=== PATIENT | male | born 1990 | race Caucasian/White ===

== ENCOUNTER 2017-09-13 10:50 | Observation (INO) ==
[2017-09-13] MEDS ORDERED: 0.9 % SODIUM CHLORIDE 1,000 ML IV ONE (11:11)
[2017-09-13] MEDS ORDERED: KETOROLAC 30 MG/ML VIAL IV ONE (11:13)
[2017-09-13] MEDS ORDERED: LEVOFLOXACIN 500 MG/100 ML BAG IV ONE (11:20)
--- NOTE | 2017-09-13 11:28 | Emergency Department Note ---
Male Urogenital HPI - General Chief complaint: Flank Pain Stated complaint: Flank pain, N/V Time Seen by Provider: 09/13/17 11:18 Source: patient Mode of arrival: ambulatory Limitations: no limitations - History of Present Illness HPI Narrative: Patient states he has had some dysuria and frequency over the last month intermittently. Last night at approximately 2:00 in the morning he was awake with severe pain he rates it as a 10/10 continues having severe pain in the left flank, rates it as a 7/10. Patient has no history of kidney stones. Patient is afebrile. There is no family history of kidney stones. Patient had an episode of nausea with vomiting during the night there is been no diarrhea no constipation problems no hematemesis no melena. His urine dip test does show large amount of WBCs large amount of RBCs - Related Data Home Medications Medication Instructions Recorded Confirmed No Known Home Meds [No Known Home 10/24/14 09/13/17 Meds] Allergies Allergy/AdvReac Type Severity Reaction Status Date / Time No Known Drug Allergies Allergy Unverified 10/24/14 19:57 Review of Systems All systems ED: reviewed and negative except as stated. Constitutional: Denies: fever, chills Genitourinary: Reports: as per HPI, dysuria, frequency, hematuria. Denies: urgency, incontinence, discharge Past Medical History - Past Medical History Medical history: Reports: atrial fibrillation (One episode 5 years ago. On no medications), seizures (2 times in his life is on no medications) Surgical history ED: Reports: no surgical history Family history: Reports: other (Brother with epilepsy) - Social History smoking status: Never smoker Alcohol use: Reports: Rarely Drug use: Reports: none Physical Exam Limitations: no limitations General appearance: alert Head: atraumatic Eye: Present: normal appearance, PERRL ENT: normal exam, normal oropharynx, mucous membranes moist Neck: Present: normal inspection, full ROM. Absent: trachea midline Chest: Present: normal inspection, symmetric chest wall rise. Absent: tenderness Respiratory: Present: normal lung sounds bilaterally. Absent: respiratory distress, wheezes Cardiovascular: Present: regular rate, normal rhythm. Absent: bradycardia, tachycardia Abdominal: Present: soft, normal bowel sounds. Absent: distention, tenderness, guarding, rebound, rigidity Extremities: Present: normal inspection Back: Present: normal inspection, full ROM, CVA tenderness (L). Absent: muscle spasm, paraspinal tenderness Neurological: Present: alert, oriented X3, CN II-XII intact Psychiatric: Present: normal affect, normal mood Course Vital Signs Temperature 97.6 F 09/13/17 10:50 Pulse Rate 82 09/13/17 10:50 Respiratory Rate 16 09/13/17 10:50 Blood Pressure 137/91 09/13/17 10:50 Pulse Oximetry (%) 100 09/13/17 10:50 Temperature 97.6 F 09/13/17 10:50 Pulse Rate 87 09/13/17 12:37 Respiratory Rate 16 09/13/17 10:50 Blood Pressure 136/91 09/13/17 12:31 Pulse Oximetry (%) 100 09/13/17 12:37 Urogenital-Male - MDM Narrative Medical decision making narrative: ua dip show lg wbc and rbc. CT REVEALS 10 MM STONE LEFT UVJ. LEVAQUIN STARTED.. dR Garrison CONTACTED, WILL BE HERE - Lab Data Result diagrams: 09/13/17 11:16 09/13/17 11:16 Lab Results 09/13/17 09/13/17 09/13/17 Range/Units 11:16 11:16 11:16 WBC 9.7 (4.5-11.0) K/mcL RBC 5.51 (4.50-5.90) M/mcL Hgb 15.7 (13.5-16.5) g/dL Hct 45.9 (41.0-55.0) % MCV 83.3 (80.0-100.0) fL MCH 28.5 (26.0-34.0) pg MCHC 34.2 (31.0-36.0) g/dL RDW 13.0 (11.5-14.5) % Plt Count 156 (140-440) K/mcL MPV 9.6 (7.4-10.4) fL Gran % 70.8 (38.0-78.0) % Lymph % (Auto) 18.5 (15.5-49.0) % [place] % (Auto) 9.1 (1.0-12.0) % Eos % (Auto) 1.2 (0.0-7.0) % Baso % (Auto) 0.4 (0.0-2.0) % Gran # 6.9 (1.8-8.0) K/mcL Lymph # (Auto) 1.8 (1.5-4.8) K/mcL [place] # (Auto) 0.9 (0.1-0.9) K/mcL Eos # (Auto) 0.1 (0.0-0.7) K/mcL Baso # (Auto) 0 (0.0-0.3) K/mcL Sodium 141 (133-145) mmol/L Potassium 3.8 (3.3-5.1) mmol/L Chloride 102 (96-108) mmol/L Carbon Dioxide 27 (22-30) mmol/L Anion Gap 12.0 (8-16) BUN 17 (6-20) mg/dl Creatinine 1.4 H (0.7-1.2) mg/dl GFR Calculation 70 Glucose 119 H (70-105) mg/dL Calcium 8.9 (8.6-10.4) mg/dl Total Bilirubin 1.1 H (0.0-1.0) mg/dL AST 16 (0-37) U/l ALT 16 (0-40) U/l Alkaline Phosphatase 48 (39-117) U/L Total Protein 7.2 (5.9-8.4) gm/dL Albumin 4.7 (3.2-5.2) gm/dL Globulin 2.5 (2.2-3.7) gm/dL Albumin/Globulin Ratio 1.9 (1.0-2.3) Urine Color Yellow Urine Appearance Clear Urine pH 5.0 (5.0-9.0) Ur Specific [place] 1.023 (1.000-1.035) Urine Protein 30 A (NEG) mg/dL Urine Glucose (UA) Negative (NEG) mg/dL Urine Ketones Neg (NEG) mg/dL Urine Occult Blood 0.2 A (<0.03) mg/dL Urine Nitrate Neg (NEG) Urine Bilirubin Neg (NEG) mg/dL Urine Urobilinogen Neg (NEG) mg/dL Ur Leukocyte Esterase 75 A (NEG) /uL Urine RBC 140 H (0-1) /hpf Urine WBC 31 H (0-4) /hpf Ur Squamous Epith Cells 0 (0-4) /hpf Urine Bacteria 0 (0) /hpf Urine Mucus Few (0) /hpf Ur Culture Indicated? Yes 09/13/17 Range/Units 11:16 WBC (4.5-11.0) K/mcL RBC (4.50-5.90) M/mcL Hgb (13.5-16.5) g/dL Hct (41.0-55.0) % MCV (80.0-100.0) fL MCH (26.0-34.0) pg MCHC (31.0-36.0) g/dL RDW (11.5-14.5) % Plt Count (140-440) K/mcL MPV (7.4-10.4) fL Gran % (38.0-78.0) % Lymph % (Auto) (15.5-49.0) % [place] % (Auto) (1.0-12.0) % Eos % (Auto) (0.0-7.0) % Baso % (Auto) (0.0-2.0) % Gran # (1.8-8.0) K/mcL Lymph # (Auto) (1.5-4.8) K/mcL [place] # (Auto) (0.1-0.9) K/mcL Eos # (Auto) (0.0-0.7) K/mcL Baso # (Auto) (0.0-0.3) K/mcL Sodium (133-145) mmol/L Potassium (3.3-5.1) mmol/L Chloride (96-108) mmol/L Carbon Dioxide (22-30) mmol/L Anion Gap (8-16) BUN (6-20) mg/dl Creatinine (0.7-1.2) mg/dl GFR Calculation Glucose (70-105) mg/dL Calcium (8.6-10.4) mg/dl Total Bilirubin (0.0-1.0) mg/dL AST (0-37) U/l ALT (0-40) U/l Alkaline Phosphatase (39-117) U/L Total Protein (5.9-8.4) gm/dL Albumin (3.2-5.2) gm/dL Globulin (2.2-3.7) gm/dL Albumin/Globulin Ratio (1.0-2.3) Urine Color TNP Urine Appearance TNP Urine pH TNP (5.0-9.0) Ur Specific [place] TNP (1.000-1.035) Urine Protein TNP (NEG) mg/dL Urine Glucose (UA) TNP (NEG) mg/dL Urine Ketones TNP (NEG) mg/dL Urine Occult Blood TNP (<0.03) mg/dL Urine Nitrate TNP (NEG) Urine Bilirubin TNP (NEG) mg/dL Urine Urobilinogen TNP (NEG) mg/dL Ur Leukocyte Esterase TNP (NEG) /uL Urine RBC (0-1) /hpf Urine WBC (0-4) /hpf Ur Squamous Epith Cells (0-4) /hpf Urine Bacteria (0) /hpf Urine Mucus (0) /hpf Ur Culture Indicated? TNP Disposition Pt seen by ASSISTANT DEAN OF STUDENTS/PA only: No Clinical Impression: Urolithiasis Qualifiers: Urinary calculus location: ureter Qualified Code(s): N20.1 - Calculus of ureter Disposition: Xfer As Inpt ([facility]) Condition: Fair Referrals: No,PCP [Primary Care Provider] - Time of Disposition: 13:13
[2017-09-13 11:38] LABS: Basophils # (Auto) 0 K/mcL (0.0-0.3); Basophils % (Auto) 0.4 % (0.0-2.0); Eosinophils # (Auto) 0.1 K/mcL (0.0-0.7); Eosinophils % (Auto) 1.2 % (0.0-7.0); Granulocytes % (Auto) 70.8 % (38.0-78.0); Lymphocytes # (Auto) 1.8 K/mcL (1.5-4.8); Lymphocytes % (Auto) 18.5 % (15.5-49.0); Mean Cell Volume 83.3 fL (80.0-100.0); Mean Corpuscular HGB Conc 34.2 g/dL (31.0-36.0); Mean Corpuscular Hemoglobin 28.5 pg (26.0-34.0); Monocytes # (Auto) 0.9 K/mcL (0.1-0.9); Monocytes % (Auto) 9.1 % (1.0-12.0); Platelet Count 156 K/mcL (140-440); RBC 5.51 M/mcL (4.50-5.90)
[2017-09-13 11:42] LABS: Appearance,Urine CLEAR; Bacteria,Urine 0 /hpf (0); Bilirubin,Urine NEG (NEG); Color,Urine YELLOW; Glucose,Urine (UA) NEGATIVE (NEG); Leukocyte Esterase,Urine 75 /uL (NEG); Mucus,Urine FEW /hpf (0); Protein,Urine 30 mg/dL (NEG); Specific Gravity,Urine 1.023 (1.000-1.035); Urine Blood 0.2 mg/dL (<0.03); Urine RBC 140 /hpf (0-1); Urine Squamous Epithelial Cell 0 /hpf (0-4); Urine WBC 31 /hpf (0-4); Urobilinogen,Urine NEG (NEG)
[2017-09-13 11:56] LABS: ALT/SGPT 16 U/l (0-40); Albumin 4.7 gm/dL (3.2-5.2); Albumin/Globulin Ratio 1.9 (1.0-2.3); Alkaline Phosphatase 48 U/L (39-117); Blood Urea Nitrogen 17 mg/dl (6-20)
--- NOTE | 2017-09-13 12:45 | Cat Scan Report ---
CLINICAL INFORMATION: Left flank pain COMPARISON: None. TECHNIQUE: 0.625 mm helical slices were obtained from the mid heart through the subtrochanteric regions. Following reconstruction, 2.5 mm sagittal, coronal and axial reformatted images were processed and reviewed at bone and soft tissue windows.The exam was performed using radiation dose optimization techniques including, but not limited to, automated exposure control, adjustment of the mA and/or kV according to patient size and use of iterative reconstruction technique. FINDINGS: There is a 10 mm stone in the distal left ureter, near the UVJ, which results in severe left hydroureter/hydronephrosis. Both kidneys, right upper collecting system, right ureter and urinary bladder are otherwise normal. Lung bases show no abnormality - no effusion. Visualized heart is normal. Images through the abdomen show the noncontrasted gallbladder and bile ducts, liver, both adrenal glands, spleen, pancreas and aorta to be normal. There is no free air, free fluid or adenopathy. Stomach small and large bowel are normal. Bone windows show severe degenerative change in the right hip with marked flattening of the femoral head and neck. This may be congenital. IMPRESSION: 1. 10 mm stone in the distal left ureter, near the UVJ, resulting in severe left hydroureter/hydronephrosis. This is unlikely to pass spontaneously 2. 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 Femoral head is markedly flattened severe degeneration noted. Interpreted and Authenticated by: Kunal Sapp 09/13/17
[2017-09-13] MEDS ORDERED: FAMOTIDINE/PF 20 MG/2 ML VIAL IV ONE (15:30)
[2017-09-13] MEDS ORDERED: DEXAMETHASONE 10 MG/ML VIAL IV ONE (15:30)
[2017-09-13] MEDS ORDERED: PROPOFOL 200 MG/20 ML VIAL IV ONE (15:30)
[2017-09-13] MEDS ORDERED: MIDAZOLAM 5 MG/5 ML VIAL IV ONE (15:30)
[2017-09-13] MEDS ORDERED: VERAPAMIL 2.5 MG/ML VIAL IV ONE (15:30)
[2017-09-13] MEDS ORDERED: SUCCINYLCHOLINE 20 MG/ML ML IV ONE (15:30)
[2017-09-13] MEDS ORDERED: fentaNYL 250 MCG/5 ML VIAL IV ONE (15:30)
[2017-09-13] MEDS ORDERED: LIDOCAINE HCL/PF 100 MG/5 ML SYRINGE IV ONE (15:30)
[2017-09-13] MEDS ORDERED: IOPAMIDOL 50 ML BOTTLE IJ ONE (16:15)
[2017-09-13] MEDS ORDERED: OPIUM/BELLADONNA ALKALOIDS 60 MG SUPP.RECT PR PRN ×2 (16:33→17:32)
[2017-09-13] MEDS ORDERED: HYDROcodone/APAP 10/325MG TABLET PO PRN (16:33)
[2017-09-13] MEDS ORDERED: ONDANSETRON 4 MG/2 ML VIAL IV PRN ×2 (16:33→17:32)
--- NOTE | 2017-09-13 16:36 | Brief Operative Note ---
Date of procedure: 09/13/17 Pre-op diagnosis: left ureteral stone Post-op diagnosis: same Procedure: bladder biopsy, stent Grafts/Implants: Yes (ureteral stent) Anesthesia: GETA, GLMA Findings: see note Complications: none Surgeon: Timothy Monet Specimens Removed/Pathology: other (bladder biopsy) Condition: other Disposition: PACU
--- NOTE | 2017-09-13 16:38 | Discharge Plan ---
Discharge Plan - Patient/Caregiver Discharge Instructions Activity: increase activity as tolerated Diet: Regular Diet Additional Instructions: go to e.d. - Follow up Plan Follow up with: No,PCP [Primary Care Provider] - Disposition: Still a Patient Prognosis: Good Rehab Potential: Good Overall status at discharge: patient is not back to baseline
[2017-09-13] MEDS ORDERED: ACETAMINOPHEN 325 MG TABLET PO PRN ×2 (17:13→17:32)
[2017-09-13] MEDS ORDERED: NALOXONE HCL 0.4 MG/ML VIAL IV PRN ×2 (17:13→17:32)
--- NOTE | 2017-09-13 17:44 | Internal Med History&Physical ---
Medical - H&P: HPI Patient information: Note initiated : 09/13/17 at 5:42 pm Service Date, if different from initiated Date: [] Patient: William Fontana 26 y/o M admitted on 09/13/17 for Flank pain, N/ V. Chief Complaint: [] History of present illness: Mr. Fontana is a 26 year old Male with h/o afib paroxysmal afib (seziure induced triggued afib? ), h/o seizure disorder presents to the ER today with dysuria and abdominal pain, noted to have ureteral stone on the left side with severe hydronephrosis. The patient was seen by urology and taken to OR for stone extraction/ during the procedure, the patient went in afib with rvr, the patient had elevated HR even prior to the procedure and was in afib, however at the time of induction the patient gil in rvr, needing 3 doses of verapramil, I believe 10mg x 3 The patient hR improved AT stent was placed and patient was asked to be admitted for monitoring overnight The patient otherwise has no acute complaints or concerns, does admit to intermittent dizziness, but no palpitations, no chest pain, shortness of breath , prior to the procedure or in recent times He does have h/o afib, has been cardioverted in 2012, as per Dr lópez, he was supposed to be on low caffene, he was on metoprolol and pradaxa at one time but these were stopped. He had a normal echo in 2014 In the Er his labs were unremarkable wbc normal at 9.7, hb 15.7, plat 1536 Na 141 , K 3.8, creat 1.4, glucose 119 Tbil 1.1 lac 0.9' EKG atrial fibrillation, no olf ekg to compare All systems: reviewed and no additional remarkable complaints except as stated ( as per HPI rest neg) Medical - H&P: PMH Medical history: seizure disorder, not on meds h/o paroxmal afib congenital hip dysplasia Surgical history: h/o appendetomy Family history: reviewed and not pertinent Social history: high caffene intake, 3 shots of duch bros coffee, in AM and moutain dew during day time. denies smoking, redbull use denies regular etoh use, but does binge when drinks 6-7 drinks at one time. denies recreational drug use. Medical - H&P: Meds Home Medications Medication Instructions Recorded Confirmed Type No Known Home Meds [No Known Home 10/24/14 09/13/17 History Meds] Allergies Allergy/AdvReac Type Severity Reaction Status Date / Time No Known Drug Allergies Allergy Unverified 10/24/14 19:57 Medical - H&P: Exam - Constitutional Vitals: Temp Pulse Resp BP Pulse Ox 97.6 F 88 16 130/72 100 09/13/17 17:12 09/13/17 17:12 09/13/17 17:12 09/13/17 17:12 09/13/17 17:12 Exam: GENERAL: The patient is a well-developed, well-nourished in no apparent distress. Is alert and oriented x3. VITAL SIGNS: Reviewed and as noted elsewhere. HEENT: Head is normocephalic and atraumatic. Extraocular muscles are intact. Pupils are equal, round, and reactive to light. Nares appeared normal. Mouth appears any without lesions. Mucous membranes are moist. NECK: Normal to inspection, Supple, No lymphadenopathy or thyromegaly. LUNGS: Air entry equal on both sides, no wheezing, crackles or rhonchi noted. No accessory muscles of respiration HEART: Regular rate and rhythm normal, S1 and S2 heard, no Gallop, S3 or Rub Noted, No Gross murmur heard. ABDOMEN: Soft, nontender, and nondistended. Positive bowel sounds. No hepatosplenomegaly was noted. EXTREMITIES: No cyanosis, clubbing, rash, lesions or edema. NEUROLOGIC: Cranial nerves II through XII are grossly intact. Motor and Sensory System Grossly Intact PSYCHIATRIC: Normal affect, Normal Mood. Appropriate Behavior. SKIN: No ulceration or wounds noted, No jaundice, No rash noted. Medical - H&P: Reslt - Labs CBC & Chem 7: 09/13/17 11:16 09/13/17 11:16 Labs: Short CBC 09/13/17 Range/Units 11:16 WBC 9.7 (4.5-11.0) K/mcL Hgb 15.7 (13.5-16.5) g/dL Hct 45.9 (41.0-55.0) % Plt Count 156 (140-440) K/mcL BMP 09/13/17 11:16 Sodium 141 Potassium 3.8 Chloride 102 Carbon Dioxide 27 BUN 17 Creatinine 1.4 H Glucose 119 H Calcium 8.9 Liver Function 09/13/17 Range/Units 11:16 Total Bilirubin 1.1 H (0.0-1.0) mg/dL AST 16 (0-37) U/l ALT 16 (0-40) U/l Alkaline Phosphatase 48 (39-117) U/L Albumin 4.7 (3.2-5.2) gm/dL Urine 09/13/17 09/13/17 Range/Units 11:16 11:16 Urine Color Yellow TNP Urine Appearance Clear TNP Urine pH 5.0 TNP (5.0-9.0) Ur Specific [place] 1.023 TNP (1.000-1.035) Urine Protein 30 A TNP (NEG) mg/dL Urine Glucose (UA) Negative TNP (NEG) mg/dL Medical - H&P: A/P - Narrative A/P Narrative: A/P Afib with rvr: likely triggered due to combination of pain, likely some dehydration due to poor intake, high caffene use. GIven neg echo in 2012, and no obvious concern by his steel pourer. I feel this can be managed just with IV fluids and starting him back on metoprolol. will start with 25mg bid, and monitor He needs to cut bck on his c affene intake, metoprolol can be discontinued in the future by his pcp, he he remains compliant with caffene intake and we can monitor his rhythym as outpatient off the drug. check utox check mg level k is 3.8 monitor on tele overnight. Renal stone/ s/p stent palcement. UA suggestive of UTI, on ciprofloxacin elevated creat at 1.4, young muscular individual not sure about hs baseline. but his hydronephrolsis may have contributed to elevation of same. now that stent has been placed I expect this to improve. dvt hep sq Diet regula full code.
[2017-09-13 19:01] LABS: Amphetamine Screen,Urine NONE DETECTED (NONDETECTED); Benzodiazepines Screen,Urine NONE DETECTED (NONDETECTED); Cocaine Screen,Urine NONE DETECTED (NONDETECTED); Opiate Screen,Urine SUSPECT POSITIVE (NONDETECTED); Oxycodone, Urine Screen NONE DETECTED (NONDETECTED)
[2017-09-13] MEDS: HYDROcodone/APAP 10/325MG TABLET PO PRN (19:06)
[2017-09-13] MEDS: METOPROLOL TARTRATE 25 MG TABLET PO SCH ×2 (19:07→20:04)
[2017-09-13] MEDS: LACTATED RINGERS 1,000 ML IV SCH ×2 (19:07→21:46)
--- NOTE | 2017-09-13 20:50 | History and Physical Report ---
DATE OF ADMISSION: 09/13/2017 DATE: 09/13/2017. HISTORY OF PRESENT ILLNESS: Mr. Fontana is a 26-year-old gentleman who this morning had sudden onset of severe left flank pain. Nausea and vomiting. He has never seen any blood in his urine. He states for the last year or so he has been having pain intermittently on the left and never saw any but he denies any fevers or chills. There is no history of stones. Because of the nausea and vomiting, severe pain, came to the emergency room. A CT scan was obtained which showed a 1 cm stone in the left UVJ, which was causing high grade obstruction. I have been asked to evaluate him. PAST MEDICAL HISTORY: Significant for seizures, atrial fibrillation which he was cardioverted from. Has not seen cardiology in a while. CURRENT MEDICATIONS: None. ALLERGIES: NONE. SOCIAL HISTORY: Does not smoke, occasionally drinks. . FAMILY HISTORY: Noncontributory. REVIEW OF SYSTEMS: Cardiac: Denies any chest pain, no shortness of breath. Respiratory: No wheezing, coughing, or asthma. Psychological: Alert, no bipolar disease, no anxiety. Pulmonary: No breathing problems. The rest of a 14-point review of systems is negative. PHYSICAL EXAMINATION: GENERAL: This is a very pleasant gentleman in slight distress. VITAL SIGNS: As listed per nurse's notes. HEENT: Atraumatic, normocephalic. Extraocular movements are intact. Pupils equal, reactive to light and accommodation. No thyromegaly is noted. NECK: Supple. Trachea is in the midline. No oral mucosal lesions. LUNGS: Clear to auscultation. HEART: Regular rate and rhythm. ABDOMEN: Soft, nontender, positive left CVA tenderness which extends down to the groin. GENITOURINARY: Testicles are normal down in their normal position. Scrotum without hydrocele or varicocele. Epididymides are without cysts. Penis is circumcised without plaques. Meatus at the end of his penis. EXTREMITIES: Without clubbing, cyanosis or edema. NEUROLOGIC: Cranial nerves II-XII intact. IMPRESSION: The patient with a large stone in the distal left ureter. I have talked to him about the options including open ureterolithotomy, extracorporal lithotripsy or ureteroscopy with stone removal. He opts for the latter. I did talk to him about possible complications including bleeding, infection, pain, need for a stent and he understands. Surgery will be scheduled this afternoon. A full PARQ discussion was held and he desires surgery. KENNA:carlyle Job ID: [id number] Doc ID: [id number] Timothy Monet MD
[2017-09-13] MEDS ORDERED: HEPARIN 5,000 UNIT/ML VIAL SQ SCH (21:00)
[2017-09-13] MEDS: HEPARIN 5,000 UNIT/ML VIAL SQ SCH (21:03)
[2017-09-13] MEDS: CIPROFLOXACIN 500 MG TABLET PO SCH (21:03)
[2017-09-13] MEDS: 0.9 % SODIUM CHLORIDE 10 ML SYRINGE IV SCH (21:05)
[2017-09-13] MEDS ORDERED: 0.9 % SODIUM CHLORIDE 10 ML SYRINGE IV SCH ×3 (22:00)
[2017-09-13] MEDS: METOPROLOL TARTRATE 5 MG/5 ML VIAL IV SCH (22:05)
[2017-09-14] MEDS: HYDROcodone/APAP 10/325MG TABLET PO PRN ×2 (00:04→03:35)
[2017-09-14] MEDS: LACTATED RINGERS 1,000 ML IV SCH (00:07)
[2017-09-14 05:05] LABS: Mean Cell Volume 85.7 fL (80.0-100.0); Mean Corpuscular Hemoglobin 28.3 pg (26.0-34.0); Platelet Count 146 K/mcL (140-440); RBC 5.13 M/mcL (4.50-5.90); Red Cell Distribution Width 13.8 % (11.5-14.5)
[2017-09-14] MEDS: 0.9 % SODIUM CHLORIDE 10 ML SYRINGE IV SCH (05:22)
[2017-09-14 05:31] LABS: ALT/SGPT 12 U/l (0-40); Albumin 3.7 gm/dL (3.2-5.2); Albumin/Globulin Ratio 1.5 (1.0-2.3); Alkaline Phosphatase 47 U/L (39-117); Bilirubin,Direct < 0.2 mg/dL (0.0-0.3); Blood Urea Nitrogen 16 mg/dl (6-20); Gamma Glutamyl Transpeptidase 14 U/L (8-61); Uric Acid 5.2 mg/dL (2.5-8.0)
[2017-09-14 05:34] LABS: Band Neutrophils % 7 % (0-10); Lymphocytes % 10 % (15-49); Monocytes % (Manual) 3 % (1-12); Platelet Estimate NORMAL (NORMAL); RBC Morphology NORMAL (NORMAL); Segmented Neutrophils % 80 % (38-78)
--- NOTE | 2017-09-14 05:59 | XRay Report ---
CLINICAL INFORMATION: 10 mm stone in the distal left ureter resulting in severe left hydroureter/hydronephrosis. COMPARISON: None. FINDINGS: Multiple digital images from the OR were any: A catheter was placed in the the left upper collecting system demonstrating severe left hydronephrosis/hydroureter due to a 10 mm obstructing stone near the UVJ. Two images show the stone still intact in the region of the distal left ureter IMPRESSION: 10 mm stone in the distal left ureter resulting in severe left hydroureter/hydronephrosis. No post stone removal images were submitted. Interpreted and Authenticated by: Kunal Sapp 09/14/17
[2017-09-14] MEDS: METOPROLOL TARTRATE 25 MG TABLET PO SCH (08:38)
[2017-09-14 09:00] LABS: Hemoglobin A1C 5.3 % HGB (4.0-6.0)
--- NOTE | 2017-09-14 09:47 | Discharge Summary ---
Medical - DS: Prov Patient information: Note initiated : 09/14/17 at 9:45 am Service Date, if different from initiated Date: [] Patient: William Fontana 26 y/o M admitted on 09/13/17 for Flank pain, N/ V. Chief Complaint: [] Date of admission: 09/13/17 17:00 Discharge date: 09/14/17 Primary care physician: PCP No Admitting clinician: Jacqui Freeman Consults: 09/13/17 13:06 Consult to Physician [CONS] Stat Comment: Consulting Provider: Timothy Monet Reason For Exam: Physician to Consult Discharging clinician: Jacqui Freeman Medical - DS: Meds - Discharge Medications Prescriptions: Metoprolol Tartrate [Lopressor] 25 mg PO BID #60 tablet Active and Home Medications: Home Medications No Known Home Meds [No Known Home Meds] 10/24/14 [History Confirmed 09/13/17 Last Taken Unknown] Medical - DS: Hosp Hospital course: Mr. Fontana is a 26 year old Male with h/o afib paroxysmal afib (seziure induced triggued afib? ), h/o seizure disorder presents to the ER with dysuria and abdominal pain, noted to have ureteral stone on the left side with severe hydronephrosis. The patient was seen by urology and taken to OR for stone extraction/ during the procedure, the patient went in afib with rvr, the patient had elevated HR even prior to the procedure and was in afib, however at the time of induction the patient gil in rvr, needing 3 doses of verapramil, I believe 10mg x 3 the patients heart rate improved after, verapramil, and he was admitted to the hospital for overnight observation. Afib: chr issue, in the past was on metoprolol,, has been cardioverted in 2012, as per Dr lópez, he was supposed to be on low caffene, he was on metoprolol and pradaxa at one time but these were stopped. He had a normal echo in 2012, the patient at this time is being started back on metoprolol 25mg bid, advised low caffene diet. I have advised the patient to be followed by laborer [employer] as an outpatient so that he could undergo his stone removal/ lithotripsy procedure in the future. TSH 0.3 in normal range. Elevated glucose, fasting glucose as 151, a1c 5.3, discussed same with the patient, that his glucose was high than expected and he needs to start taking due precautions from now. Advised follow up with regular physician Hydronephrosis/ ureteral stone: stent placed, follow up as outpatient with Dr Monet. Discharge diagnosis: Atrial fibrillation - Time Spent with Patient Total time spent providing and/or coordinating discharge services: Less than 30 minutes Medical - DS: Exam - Constitutional Vitals: Vital Signs Temp Pulse Pulse Resp BP BP Pulse Ox 09/14/17 07:48 98.1 F 84 18 119/64 98 09/14/17 03:41 98.2 F 92 H 14 111/53 97 09/14/17 01:58 88 14 99 09/14/17 00:13 98.2 F 16 102/52 99 09/13/17 20:16 110/68 97 09/13/17 20:04 97 09/13/17 20:01 116/72 96 09/13/17 19:46 118/81 98 09/13/17 19:31 111/70 97 09/13/17 19:16 123/72 97 09/13/17 19:01 125/77 97 09/13/17 18:46 131/75 09/13/17 18:41 97 09/13/17 18:31 115/79 97 09/13/17 18:16 125/81 98 09/13/17 18:01 128/77 100 09/13/17 17:46 126/73 99 09/13/17 17:32 98.5 F 125/83 99 09/13/17 17:12 97.6 F 88 16 130/72 100 09/13/17 17:07 92 H 14 126/74 100 09/13/17 17:02 97 H 15 124/70 100 09/13/17 16:57 104 H 16 113/71 100 09/13/17 16:52 93 H 13 101/44 100 09/13/17 16:47 97.7 F 111 H 15 102/66 100 09/13/17 15:05 97.6 F 96 H 16 132/86 99 09/13/17 15:01 100 H 129/90 99 09/13/17 14:37 80 123/80 98 09/13/17 14:18 96 H 132/86 99 06/02/18 13:25 89 99 09/13/17 13:01 83 124/77 99 09/13/17 12:37 87 100 09/13/17 12:31 85 136/91 99 09/13/17 12:01 82 121/69 98 09/13/17 11:31 74 126/80 100 09/13/17 11:22 69 128/80 100 09/13/17 10:50 97.6 F 82 16 137/91 100 Intake and Output 09/13/17 09/14/17 09/14/17 21:59 05:59 13:59 Intake Total 1840 / 1840 1800 / 1800 Output Total 750 / 750 875 / 875 400 / 400 Balance 1090 / 1090 925 / 925 -400 / -400 Intake: IV 1000 / 1000 1000 / 1000 Lactated Ringers 1,000 ml @ 150 1000 / 1000 1000 / 1000 mls/hr IV .[id number] [facility] Rx#: [id number] Oral 840 / 840 800 / 800 Output: Void Amount 750 / 750 875 / 875 400 / 400 Other: Meal [place] and Ice Cream Percent of Meal Consumed 100% Feeding Ability Independent Weight 189 lb 8 oz Additional comments: Constitutional; Afebrile, cooperative, alert, not in distress. Eyes- No icterus, , No periorbital swelling Ears- Ext ear normal, hearing normal to conversation. Neck- Midline trachea, supple Respiratory system: Air Entry equal on both sides, No crackles or wheezing, no rhonchi. CVS- Rate rhythm regular, S1,S2 heard, no gallop, no rub. Abdomen- Soft nontender abdomen, no organomegaly, no tenderness, no guarding or rigidity, PROGRAM THERAPIST- AOOx3, moving all extremities, no gross focal deficit noted. Medical - DS: Data Labs on day of discharge: Labs from last 24 hours 09/14/17 09/14/17 09/14/17 04:00 04:00 04:00 WBC 9.5 RBC 5.13 Hgb 14.5 Hct 44.0 MCV 85.7 MCH 28.3 MCHC 33.0 RDW 13.8 Plt Count 146 MPV 10.5 H Gran % Lymph % (Auto) [place] % (Auto) Eos % (Auto) Baso % (Auto) Gran # Lymph # (Auto) [place] # (Auto) Eos # (Auto) Baso # (Auto) Total Counted 100 Seg Neutrophils % 80 H Band Neutrophils % 7 Lymphocytes % 10 L Monocytes % (Manual) 3 Platelet Estimate Normal RBC Morphology Normal VBG Lactic Acid Sodium 139 Potassium 4.6 Chloride 104 Carbon Dioxide 25 Anion Gap 10.0 BUN 16 Creatinine 1.0 GFR Calculation 105 Glucose 151 H Hemoglobin A1c 5.3 Estim Average Glucose 105 Uric Acid 5.2 Calcium 8.5 L Phosphorus 3.1 Magnesium 1.9 Total Bilirubin 0.7 Direct Bilirubin < 0.2 GGT 14 AST 12 ALT 12 Alkaline Phosphatase 47 Lactate Dehydrogenase 162 Total Protein 6.1 Albumin 3.7 Globulin 2.4 Albumin/Globulin Ratio 1.5 Triglycerides 94 TSH 0.30 Urine Color Urine Appearance Urine pH Ur Specific [place] Urine Protein Urine Glucose (UA) Urine Ketones Urine Occult Blood Urine Nitrate Urine Bilirubin Urine Urobilinogen Ur Leukocyte Esterase Urine RBC Urine WBC Ur Squamous Epith Cells Urine Bacteria Urine Mucus Ur Culture Indicated? Urine Opiates Screen Ur Opiates Confirm Ur Oxycodone Screen Urine Methadone Screen Ur Methadone Confirm Ur Barbiturates Screen Ur Barbiturate Confirm Ur Phencyclidine Scrn Urine PCP Confirm Ur Amphetamines Screen U Amphetamines Confirm U Benzodiazepines Scrn U Benzodiazepine Confm Urine Cocaine Screen Urine Cocaine Confirm U Cannabinoids Confirm U Marijuana (THC) Screen 09/13/17 09/13/17 09/13/17 17:26 12:57 11:16 WBC RBC Hgb Hct MCV MCH MCHC RDW Plt Count MPV Gran % Lymph % (Auto) [place] % (Auto) Eos % (Auto) Baso % (Auto) Gran # Lymph # (Auto) [place] # (Auto) Eos # (Auto) Baso # (Auto) Total Counted Seg Neutrophils % Band Neutrophils % Lymphocytes % Monocytes % (Manual) Platelet Estimate RBC Morphology VBG Lactic Acid 0.9 Sodium Potassium Chloride Carbon Dioxide Anion Gap BUN Creatinine GFR Calculation Glucose Hemoglobin A1c Estim Average Glucose Uric Acid Calcium Phosphorus Magnesium 1.9 Total Bilirubin Direct Bilirubin GGT AST ALT Alkaline Phosphatase Lactate Dehydrogenase Total Protein Albumin Globulin Albumin/Globulin Ratio Triglycerides TSH Urine Color Urine Appearance Urine pH Ur Specific [place] Urine Protein Urine Glucose (UA) Urine Ketones Urine Occult Blood Urine Nitrate Urine Bilirubin Urine Urobilinogen Ur Leukocyte Esterase Urine RBC Urine WBC Ur Squamous Epith Cells Urine Bacteria Urine Mucus Ur Culture Indicated? Urine Opiates Screen Suspect positive A Ur Opiates Confirm Not Reportable Ur Oxycodone Screen None detected Urine Methadone Screen None detected Ur Methadone Confirm Not Reportable Ur Barbiturates Screen None detected Ur Barbiturate Confirm Not Reportable Ur Phencyclidine Scrn None detected Urine PCP Confirm Not Reportable Ur Amphetamines Screen None detected U Amphetamines Confirm Not Reportable U Benzodiazepines Scrn None detected U Benzodiazepine Confm Not Reportable Urine Cocaine Screen None detected Urine Cocaine Confirm Not Reportable U Cannabinoids Confirm Not Reportable U Marijuana (THC) Screen None detected 09/13/17 09/13/17 09/13/17 11:16 11:16 11:16 WBC RBC Hgb Hct MCV MCH MCHC RDW Plt Count MPV Gran % Lymph % (Auto) [place] % (Auto) Eos % (Auto) Baso % (Auto) Gran # Lymph # (Auto) [place] # (Auto) Eos # (Auto) Baso # (Auto) Total Counted Seg Neutrophils % Band Neutrophils % Lymphocytes % Monocytes % (Manual) Platelet Estimate RBC Morphology VBG Lactic Acid Sodium 141 Potassium 3.8 Chloride 102 Carbon Dioxide 27 Anion Gap 12.0 BUN 17 Creatinine 1.4 H GFR Calculation 70 Glucose 119 H Hemoglobin A1c Estim Average Glucose Uric Acid Calcium 8.9 Phosphorus Magnesium Total Bilirubin 1.1 H Direct Bilirubin GGT AST 16 ALT 16 Alkaline Phosphatase 48 Lactate Dehydrogenase Total Protein 7.2 Albumin 4.7 Globulin 2.5 Albumin/Globulin Ratio 1.9 Triglycerides TSH Urine Color TNP Yellow Urine Appearance TNP Clear Urine pH TNP 5.0 Ur Specific [place] TNP 1.023 Urine Protein TNP 30 A Urine Glucose (UA) TNP Negative Urine Ketones TNP Neg Urine Occult Blood TNP 0.2 A Urine Nitrate TNP Neg Urine Bilirubin TNP Neg Urine Urobilinogen TNP Neg Ur Leukocyte Esterase TNP 75 A Urine RBC 140 H Urine WBC 31 H Ur Squamous Epith Cells 0 Urine Bacteria 0 Urine Mucus Few Ur Culture Indicated? TNP Yes Urine Opiates Screen Ur Opiates Confirm Ur Oxycodone Screen Urine Methadone Screen Ur Methadone Confirm Ur Barbiturates Screen Ur Barbiturate Confirm Ur Phencyclidine Scrn Urine PCP Confirm Ur Amphetamines Screen U Amphetamines Confirm U Benzodiazepines Scrn U Benzodiazepine Confm Urine Cocaine Screen Urine Cocaine Confirm U Cannabinoids Confirm U Marijuana (THC) Screen 09/13/17 11:16 WBC 9.7 RBC 5.51 Hgb 15.7 Hct 45.9 MCV 83.3 MCH 28.5 MCHC 34.2 RDW 13.0 Plt Count 156 MPV 9.6 Gran % 70.8 Lymph % (Auto) 18.5 [place] % (Auto) 9.1 Eos % (Auto) 1.2 Baso % (Auto) 0.4 Gran # 6.9 Lymph # (Auto) 1.8 [place] # (Auto) 0.9 Eos # (Auto) 0.1 Baso # (Auto) 0 Total Counted Seg Neutrophils % Band Neutrophils % Lymphocytes % Monocytes % (Manual) Platelet Estimate RBC Morphology VBG Lactic Acid Sodium Potassium Chloride Carbon Dioxide Anion Gap BUN Creatinine GFR Calculation Glucose Hemoglobin A1c Estim Average Glucose Uric Acid Calcium Phosphorus Magnesium Total Bilirubin Direct Bilirubin GGT AST ALT Alkaline Phosphatase Lactate Dehydrogenase Total Protein Albumin Globulin Albumin/Globulin Ratio Triglycerides TSH Urine Color Urine Appearance Urine pH Ur Specific [place] Urine Protein Urine Glucose (UA) Urine Ketones Urine Occult Blood Urine Nitrate Urine Bilirubin Urine Urobilinogen Ur Leukocyte Esterase Urine RBC Urine WBC Ur Squamous Epith Cells Urine Bacteria Urine Mucus Ur Culture Indicated? Urine Opiates Screen Ur Opiates Confirm Ur Oxycodone Screen Urine Methadone Screen Ur Methadone Confirm Ur Barbiturates Screen Ur Barbiturate Confirm Ur Phencyclidine Scrn Urine PCP Confirm Ur Amphetamines Screen U Amphetamines Confirm U Benzodiazepines Scrn U Benzodiazepine Confm Urine Cocaine Screen Urine Cocaine Confirm U Cannabinoids Confirm U Marijuana (THC) Screen Preliminary micro results at discharge 09/13/17 11:20 Urine Culture - Preliminary Urine - Clean Void [facility] Medical - DS: A/P - Patient/Caregiver Discharge Instructions Activity: increase activity as tolerated Diet: Regular Diet Additional Instructions: Take metoprolol 25mg twice daily, 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 He will decide if you need to continue on this medication Follow up with cardiology([facility], you have been there before) in 1-2 weeks Your glucose level was high this morning, which is concerning, please consider cutting back on simple carbohydrates/ sugar intake. Establish care with a regular doctor Please take medications as prescribed by Dr Monet and follow up with him as per his instructions. Prescriptions: Metoprolol Tartrate [Lopressor] 25 mg PO BID #60 tablet - Follow up Plan Follow up with: No,PCP [Primary Care Provider] - Timothy Monet MD [Physician] - Disposition: Home, Self-Care Prognosis: Good Rehab Potential: Fair I certify that the patient requires SNF services: No Overall status at discharge: patient is back to baseline Medical - DS: Qual - VTE Deep Vein Thrombosis/Pulmonary Embolism Present on Admission: No
[2017-09-14] MEDS: CIPROFLOXACIN 500 MG TABLET PO SCH (10:01)
[2017-09-14] MEDS: HEPARIN 5,000 UNIT/ML VIAL SQ SCH (10:02)
--- NOTE | 2017-09-15 07:08 | Operative Note ---
DATE OF OPERATION: 09/13/2017 PREOPERATIVE DIAGNOSIS: Left ureteral stone. POSTOPERATIVE DIAGNOSIS: Left ureteral stone. PROCEDURE: Cystoscopy, resection of bladder tumor, retrograde pyelogram, and stent placement. SURGEON: Timothy Monet MD INDICATION: The patient is a 26-year-old gentleman who had sudden onset of left flank pain. He was noted to have a 1 cm stone and presents now for evaluation. PROCEDURE IN DETAIL: The patient was identified and consent was signed. He was taken back to the operating room where he was found to be in atrial fibrillation. A conversation with anesthesia occurred and we decided to go on with the procedure and at least put a stent in to stabilize him so he could have cardiac output. Please see the imaging manager's notes. Cystourethroscopy was performed and did have a normal appearing urethra. Prostate was minimally enlarged. Bladder neck was not contracted. In entering in the bladder right orifice was in the normal position. The left orifice could not be visualized. There was edematous tissue surrounding the orifice. The stone was seen on x-ray and it was felt that this may be a ureterocele. I tried to do a direct vision urethrotome incision of the ureterocele and I could not open up the ureter so we used the resectoscope and had to resect the tissue above the ureter. This was sent off to pathology. It should be noted the [place] urethrotome had to be used in order to allow the passage of the resectoscope. We were then able to identify the orifice. We were then able to pass a wire up into the kidney. This was confirmed using a retrograde pyelogram through a whistle tip catheter. Because he was again in a-fib and having a fast rate, the decision was made not to go after the stone. A 6 x 26 stent was placed using the Seldinger technique which showed a good curl in the kidney and the bladder, and his bladder was drained. He was awoken and taken to the recovery room, and will be sent to the emergency room for further evaluation. [id number] Job ID: [id number] Doc ID: [id number] Timothy Monet MD
--- NOTE | 2017-09-16 12:04 | Surgical Pathology Report ---
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 -- NO UROTHELIAL DYSPLASIA, IN SITU OR INVASIVE CARCINOMA IDENTIFIED. (DMT:adj) GROSS DESCRIPTION Received in formalin labeled "A", is a 1.9 x 0.6 x 0.4 cm lira piece of tissue. Totally submitted - one cassette. (GAS:sln) Electronically Signed by: Abraham Alfaro M.D.
== END 2017-09-14 11:55 | disposition home or self-care (01) ==
LOC: ED 10:50 → ICU 15:07 → SUR 15:07
PROVIDERS: ADMIT Internal Medicine; ATTEND Internal Medicine